=== PATIENT | female | born 1965 ===

== ENCOUNTER 2023-06-18 08:00 | Outpatient (CLI) | payer BC, MEDICAID | END 2023-06-18 23:59 | disposition home or self-care (01) | LOC: LAB 08:00 | DX: R19.4 Change in bowel habit (principal); K92.1 Melena | CPT/HCPCS: 81599; 82274; 87045; 87046; 87427 ==

== ENCOUNTER 2023-07-13 08:57 | Outpatient (CLI) | payer BC ==
--- NOTE | 2023-07-13 10:30 | Ultrasound Report ---
PROCEDURE: Pelvic w/Transvaginal INDICATIONS: ABD BLOATING, left-sided pain for 2 months TECHNIQUE: Real-time scanning was performed of the pelvic organs, with image documentation. Additional endovagi nal scanning was necessary due to incomplete visualization of the adnexal and endometrial structures by transabdominal scanning. COMPARISON: None. FINDINGS: Uterus: Uterus is anteverted and normal in size at 4.8 x 3.1 x 4.0 cm. The myometrium is heterogene ous. The endometrium measures 4 mm in combined thickness. No uterine fibroids. Ovaries: The right ovary measures 1.5 x 0.9 x 0.9 cm, with a calculated ovarian volume of 0.6 cc. T he left ovary measures 1.6 x 1.1 x 1.0 cm, with a calculated ovarian volume of 0.9 cc. The ovaries h ave a normal sonographic appearance. Less than 12 follicles can be seen in each ovary. No adnexal m asses are seen. No cystic lesions measuring greater than 3 cm. Mildly dilated left fallopian tube annelise suring 6 mm. Other: No pathologic free abdominal or pelvic fluid. IMPRESSION: 1.Mild left hydrosalpinx. This is nonspecific. Recommend follow-up ultrasound in 6-12 weeks to assess stability. If pain does not resolve, consider further evaluation with CT or MRI. 2.The remainder of the pelvic ultrasound is within normal limits. Reviewed by: Joe Michelle MD on 07/13/2023 10:28 AM PDT Approved by: Joe Michelle MD on 07/13/2023 10:28 AM PDT Station ID: [id number]
--- NOTE | 2023-07-13 10:35 | Ultrasound Report ---
PROCEDURE: Abdomen Limited INDICATIONS: ABD BLOATING TECHNIQUE: Real-time focused scanning was performed of the abdomen, with image documentation. COMPARISONS: None. FINDINGS: Liver: Increased liver echogenicity, with posterior attenuation, most consistent with moderate to se randa hepatic steatosis. Right hepatic cyst measuring 1.8 cm. Gallbladder: No gallbladder wall thickening. A 1.2 cm stone is seen at the neck of gallbladder/proxim al cystic duct with dilatation of the cystic duct to 5 mm. Negative sonographic Richey's sign. Biliary ducts: Intrahepatic bile ducts are non-dilated. Extrahepatic bile duct caliber measures 4 m m. Normal is 6-7 mm or less in diameter, or 10 mm or less post-cholecystectomy. Pancreas: Visualized portions of the pancreas are sonographically normal. Pancreatic tail is not see n. Left kidney: Normal in size and echotexture. Left kidney measures 10.2 cm long. No hydronephrosis or nephrolithiasis. No solid masses. No complex renal cystic lesions which require follow-up. Spleen: Spleen is normal in size and appearance measuring 9.7 cm. IVC: Intrahepatic inferior vena cava is patent. Miscellaneous: No free abdominal fluid. IMPRESSION: 1.Increased hepatic echogenicity is noted, possibly related to the hepatic steatosis but other source s of hepatocellular disease cannot be excluded. Recommend clinical correlation. 2.Gallstone within the neck of the gallbladder versus proximal cystic duct measuring 1.2 cm. Mild dil atation of the cystic duct measuring 5 mm. No gallbladder wall thickening or pericholecystic fluid. Reviewed by: Joe Michelle MD on 07/13/2023 10:34 AM PDT Approved by: Joe Michelle MD on 07/13/2023 10:34 AM PDT Station ID: [id number]
== END 2023-07-13 08:58 | disposition home or self-care (01) ==
LOC: DI 08:57
PROVIDERS: ATTEND Registered Nurse
DX: R14.0 Abdominal distension (gaseous) (principal); R10.32 Left lower quadrant pain; N70.11 Chronic salpingitis; R93.2 Abnormal findings on diagnostic imaging of liver and biliary tract